=== PATIENT | male | born 1955 | race Caucasian/White ===

== ENCOUNTER 2017-01-06 18:15 | Inpatient (IN) | payer OTHER ==
[~2017-01-06] VITALS: Ht 172.7 cm; Wt 54.0 kg
[~2017-01-06 18:15] MED LIST: COREG3.125 MG PO
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
[2017-01-06 20:00] VITALS: BP 161/80
[2017-01-06] MEDS ORDERED: oxyCODONE/APAP 5/325 MG 1 TAB TAB ONE (21:41)
--- NOTE | 2017-01-06 21:48 | NUR ---
PT C/O LEG PAIN, SPOKE WITH DR. LINK REGARDING PAIN MEDICATION, MEDICATED PER MD ORDER.
[2017-01-06] MEDS ORDERED: LASIX20 MG PO (22:22)
[2017-01-06] MEDS ORDERED: SPIRONOLACTONE25 M1 PO (22:25)
[2017-01-06] MEDS ORDERED: LOPRESSOR25 MG PO (22:28)
[2017-01-06] MEDS ORDERED: LORazepam 2 MG/ML VIAL IVP PRN (22:45)
[2017-01-06] MEDS ORDERED: VANCOMYCIN PER PHARMACY MC PRN (22:45)
[2017-01-06] MEDS ORDERED: METOPROLOL 25 MG TAB PO PRN (22:45)
[2017-01-06] MEDS ORDERED: ONDANSETRON 4 MG/2 ML VIAL IVP PRN (22:45)
[2017-01-06] MEDS ORDERED: DEXTROSE 50% 50 ML SYR IVP PRN (22:45)
[2017-01-07] VITALS: BP 144/67
--- NOTE | 2017-01-07 00:04 | NUR ---
VS TAKEN, STABLE. PLACED BEDSIDE COMMODE IN ROOM. CALL LIGHT WITHIN REACH.
[2017-01-07] MEDS ORDERED: VANCOMYCIN 1GM/DEXT 5% PREMIX 200 ML IV SCH (01:00)
[2017-01-07] MEDS ORDERED: cefTRIAXone 1,000 MG VIAL ONE (01:04)
--- NOTE | 2017-01-07 01:19 | NUR ---
DUE ANTIBIOTICS ADMINISTERED, TOLERATED WELL NO REACTION NOTED. WILL CONTINUE TO MONITOR.
[2017-01-07] MEDS: oxyCODONE/APAP 5/325 MG 1 TAB TAB PO PRN ×3 (01:58→22:21)
[2017-01-07] MEDS ORDERED: VANCOMYCIN 1,000 MG VIAL ONE (02:05)
[2017-01-07] MEDS: MORPHINE SULFATE 2 MG/ML SYR IVP PRN ×5 (02:06→23:57)
--- NOTE | 2017-01-07 02:06 | NUR ---
PT C/O 10/ LEG PAIN, MEDICATED PER MD ORDER. CALL LIGHT PLACED WITHIN REACH.
--- NOTE | 2017-01-07 04:45 | NUR ---
OBTAINED WOUND CULTURE FROM LEFT LEG CELLULITIS. PATIENT IS AWAKE WATCHING TV.
--- NOTE | 2017-01-07 05:23 | NUR ---
CLEANED WOUND WITH NORMAL SALINE AND COVERED WITH KERLIX. CALL LIGHT WITHIN REACH.
--- NOTE | 2017-01-07 06:50 | NUR ---
PT IS SITTING UP IN BED. BLOOD SUGAR TAKEN 66, PROVIDED PATIENT WITH JUICE.
[2017-01-07] MEDS: BLOOD GLUCOSE MONITORING 1 DEV DEV FS SCH ×4 (06:51→20:21)
--- NOTE | 2017-01-07 07:28 | NUR ---
ENDORSED PATIENT TO DAYSHIFT RN FOR CONTINUITY OF CARE, PATIENT IS AWAKE SITTING UP IN BED.
--- NOTE | 2017-01-07 07:29 | NUR ---
RECEIVED REPORT FROM MODESTO ALCAZAR. PT IS AAOX4. PT ON ROOM AIR WITH NO S/S OF DISTRESS NOTED. IV TO LEFT AC #20, PATENT AND INTACT. DRESSING TO LEFT LOWER LEG NOTED, RASH TO BACK, AND LEFT EYEBROW ABRASION. . NO N/V OR PAIN INDICATED. ALL SAFETY PRECAUTIONS IN PLACE, SIDE RAILSX2, BED IN LOW POSITION, AND CALL LIGHT WITHIN REACH. WILL CONTINUE TO MONITOR.
--- NOTE | 2017-01-07 07:30 | NUR ---
PATIENT HAS BEEN SCREENED AND CATEGORIZED HIGH NUTRITION RISK. PATIENT WILL BE SEEN WITHIN 1-2 DAYS OF ADMISSION. 01/07/17-01/08/17 NIKOLAI VILLAGOMEZ MS, RDN
[2017-01-07 08:00] VITALS: BP 141/67
[2017-01-07] MEDS: ASPIRIN 81 MG TAB.CHEW PO SCH (08:32)
[2017-01-07 08:46] VITALS: BP 135/64
--- NOTE | 2017-01-07 08:47 | NUR ---
ADMINISTERED MEDS ORDERED. RETOOK TEMP ORAL TEMP AT 98.4. VSS. PT C/O 10/ PAIN TO LEFT LOWER LEG. ADMINISTERED MORPHINE ORDERED. WILL CONTINUE TO MONITOR.
--- NOTE | 2017-01-07 10:22 | NUR ---
PT SLEEPING WITH NO DISTRESS NOTED, ORAL TEMP AT 98.4
--- NOTE | 2017-01-07 10:31 | NUR ---
01/03/2017 RD INITIAL ASSESSMENT COMPLETED PLEASE REFER TO NUTRITION ASSESSMENT UNDER CARE ACTIVITY FOR ESTIMATED NUTRITIONAL NEEDS. RD RECOMMENDATIONS: 1. CONTINUE ON CCHO 60 GM DIET MEDICALLY APPROPRIATE AND TOLERATED BY PT. 2. RDN WILL PROVIDED DIABETIC HEALTH SHAKE TID WITH ALL MEALS 3. RD WILL F/U 5-7 DAYS; LOW RISK. NIKOLAI VILLAGOMEZ MS, RDN
--- NOTE | 2017-01-07 11:32 | NUR ---
BLOOD GLUCOSE 90, NO COVERAGE INDICATED. BP 123/78, HR 112. ADMINISTERED PERCOCET ORDERED. PT TOLERATED WELL. WILL CONTINUE TO MONITOR.
--- NOTE | 2017-01-07 13:22 | NUR ---
TALKED TO TO MD VINNY AWARE OF PT MAGNESIUM AT 1.3, TO PLACE ORDERS.
--- NOTE | 2017-01-07 13:40 | NUR ---
DR CASILLAS IN TO SEE PT. WILL FOLLOW UP ORDERED. PROVIDED PT WITH WOUND CARE.
[2017-01-07] MEDS ORDERED: METOLAZONE 5 MG TAB PO SCH (14:00)
--- NOTE | 2017-01-07 14:21 | NUR ---
PT TOLERATED MEDS WELL. BP 130/66, HR 103. PT C/O 9/10 PAIN TO LEFT LEG. ADMINISTERED MORPHINE ORDERED.
[2017-01-07] MEDS ORDERED: MAG SULF 2000 MG/WATER PREMIX 50 ML IV SCH (15:00)
--- NOTE | 2017-01-07 15:28 | NUR ---
PT TOLERATED MEDS WELL. WILL CONTINUE TO MONITOR.
--- NOTE | 2017-01-07 15:34 | NUR ---
BLOOD GLUCOSE 102, NO COVERAGE INDICATED. WILL CONTINUE TO MONITOR.
[2017-01-07 16:00] VITALS: BP 134/62
[2017-01-07] MEDS: FUROSEMIDE 40 MG/4 ML VIAL IVP SCH (16:19)
--- NOTE | 2017-01-07 16:24 | NUR ---
VSS. PT TOLERATED MEDS WELL. WILL CONTINUE TO MONITOR.
--- NOTE | 2017-01-07 18:06 | NUR ---
PT EATING DINNER, NO DISTRESS NOTED AT THIS TIME. ALL NEEDS MET. WILL CONTINUE TO MONITOR.
--- NOTE | 2017-01-07 19:23 | NUR ---
ENDORSED CARE TO MODESTO FERRARA. PT IN STABLE CONDITION.
--- NOTE | 2017-01-07 19:30 | NUR ---
RECEIVED REPORT FROM MELLISSA Barriga RN, AT BEDSIDE. INITIAL ASSESSMENT AND BODY CHECK DONE. PATIENT AAO X 4, ABLE TO FOLLOW COMMAND AND MAKE NEEDS KNOWN AND AMBULATORY WITH FLUID PUMP OPERATOR. PATIENT CURRENTLY SITING UP ON THE CHAIR. NO S/S OF DISTRESS OR SOB NOTED. SKIN NOTED: LEFT LOWER EXTREMITY CELLULITIS WITH INTACT/DRY DRESSING, RASH ON THE BACK AND LT EYE BROW ABRASION (ABBY). DISCUSSED PLAN OF CARE, PAIN MANAGEMENT AND MEDICATION REGIMEN WITH PATIENT AND PATIENT VERBALIZED UNDERSTANDING. PLACED PATIENT ON SAFETY/FALL PRECAUTIONS AND WILL CONTINUE TO MONITOR. CALL LIGHT LEFT WITHIN REACH.
[2017-01-07 19:42] VITALS: BP 147/68
[2017-01-07] MEDS: METOPROLOL 25 MG TAB PO SCH (20:22)
[2017-01-07] MEDS ORDERED: MAG SULF 2000 MG/WATER PREMIX 50 ML IV ONE (20:25)
--- NOTE | 2017-01-07 20:30 | NUR ---
ADMINISTERED DUE AND PAIN MEDICATIONS MD'S ORDERED WITH EDUCATION GIVEN. PATIENT COMPLYING WITH MEDICATIONS AND TOLERATED WELL. GIVE HS SNACKS AND ONE BOX OF ORANGE JUICE. KEPT PATIENT IN COMFORTABLE POSITION/WARM AND ELEVATED LEFT LEG ON THE PILLOW. WILL CONTINUE TO MONITOR.
--- NOTE | 2017-01-07 21:00 | NUR ---
SPOKE TO DR. MILTON OVER THE PHONE TO CLARIFY THE ORDERS: THE CORRECT ORDERS: 1) NOT GIVE MG-RIDER, RECHECK MG LEVEL IN AM, AND ALBUMIN IVPB Q 6 HR FOR 48 HOURS/ TOTAL 8 DOSES. ,NOTED AND CARRIED-OUT.
--- NOTE | 2017-01-07 21:57 | NUR ---
ROUNDS MADE, SEEN PATIENT RESTED COMFORTABLY IN BED. PAIN SYMPTOM HAS BEEN STABILIZED AND UNDER CONTROL AFTER POST-MEDICATION. WILL CONTINUE TO MONITOR.
[2017-01-07] MEDS: ALBUMIN HUMAN 25% 50 ML IV SCH (23:23)
[2017-01-08] VITALS: BP 137/69
--- NOTE | 2017-01-08 00:23 | NUR ---
ADMINISTERED PRN MEDICATION FOR PAIN AND GAVE ONE PAIR OF TUNA SANDWICH PER REQUESTED. PATIENT REMAINED IN STABLE CONDITION AND NO S/S OF DISTRESS NOTED. REINFORCED LT LEG DRESSING AND ELEVATED ON PILLOW. PATIENT TOLERATED WELL. WILL CONTINUE TO MONITOR.
[2017-01-08] MEDS: VANCOMYCIN 750 MG in NACL 0.9% 250 ML IV SCH (03:01)
[2017-01-08] MEDS: MORPHINE SULFATE 2 MG/ML SYR IVP PRN ×3 (04:46→20:16)
--- NOTE | 2017-01-08 04:50 | NUR ---
AFTER AM CARE WAS GIVEN, PATIENT C/O MODERATE LEFT LEG PAIN, 6/10. ADMINISTERED PRN MORPHINE AND ELEVATED LT LEG ON THE PILLOW. PATIENT TOLERATED WELL AND WILL CONTINUE TO MONITOR FOR EFFECTIVENESS.
[2017-01-08] MEDS: ALBUMIN HUMAN 25% 50 ML IV SCH ×4 (05:13→23:16)
[2017-01-08] MEDS: BLOOD GLUCOSE MONITORING 1 DEV DEV FS SCH ×4 (05:39→20:14)
--- NOTE | 2017-01-08 07:20 | NUR ---
ENDORSED PLAN OF CARE TO MODESTO MALLOY, AT BEDSIDE. PATIENT RESTED WELL THROUGHOUT THE SHIFT AND REMAINED IN STABLE CONDITION WITHOUT DISTRESS NOTED.
--- NOTE | 2017-01-08 07:21 | NUR ---
RECEIVED REPORT FROM MODESTO FERRARA. PT IS AAOX4, PT ON ROOM AIR WITH NO S/S OF DISTRESS NOTED. IV TO LEFT AC #20, PATENT AND INTACT. LEFT LEG CELLULITIS WITH DRESSING NOTED, SCAB TO LEFT EYEBROW. NO N/V. ALL SAFETY PRECAUTIONS IN PLACE, SIDE RAILSX2, AND BED IN LOW POSITION, AND CALL LIGHT WITHIN REACH.
[2017-01-08 08:00] VITALS: BP 149/70
[2017-01-08] MEDS: oxyCODONE/APAP 5/325 MG 1 TAB TAB PO PRN ×2 (08:26→16:07)
[2017-01-08] MEDS: FUROSEMIDE 40 MG/4 ML VIAL IVP SCH ×2 (08:27→16:07)
[2017-01-08] MEDS: METOPROLOL 25 MG TAB PO SCH ×2 (08:27→20:17)
[2017-01-08] MEDS: ASPIRIN 81 MG TAB.CHEW PO SCH (08:27)
--- NOTE | 2017-01-08 08:49 | NUR ---
VSS. PT TOLERATED MEDS WELL. PT C/O 9/10 PAIN TO LEFT LEG. ADMINISTERED PERCOCET ORDERED. WILL CONTINUE TO MONITOR.
[2017-01-08] MEDS ORDERED: MAG SULF 2000 MG/WATER PREMIX 50 ML IV SCH (09:00)
[2017-01-08] MEDS ORDERED: METOLAZONE 5 MG TAB PO SCH (09:00)
--- NOTE | 2017-01-08 10:37 | NUR ---
PT SLEEPING WITH NO DISTRESS NOTED.
--- NOTE | 2017-01-08 11:37 | NUR ---
PT TOLERATED MEDS WELL. PT C/O 9/10 PAIN TO LEFT LEG. ADMINISTERED MORPHINE ORDERED. BP 127/85, HR 95. WILL CONTINUE TO MONITOR.
[2017-01-08] MEDS: INSULIN ASPART SLIDING SCALE 100 UNITS/ML VIAL SUBQ PRN ×2 (12:10→20:23)
--- NOTE | 2017-01-08 12:12 | NUR ---
BLOOD GLUCOSE 152, ADMINISTERED 2 UNITS OF INSULIN ORDERED.
--- NOTE | 2017-01-08 14:34 | NUR ---
PT SLEEPING WITH NO DISTRESS NOTED AT THIS TIME.
[2017-01-08 16:00] VITALS: BP 145/71
--- NOTE | 2017-01-08 16:13 | NUR ---
BP 162/78, HR 102. ADMINISTERED LASIX ORDERED. PT C/O 07/06, TO LEFT LEG. ADMINISTERED PERCOCET ORDERED. PT TOLERATED MEDS WELL. WILL CONTINUE TO MONITOR.
--- NOTE | 2017-01-08 17:07 | NUR ---
PT TOLERATED MEDS WELL. WILL CONTINUE TO MONITOR.
--- NOTE | 2017-01-08 17:43 | NUR ---
PT EATING DINNER WITH NO DISTRESS NOTED.
--- NOTE | 2017-01-08 19:04 | NUR ---
ENDORSED CARE TO MODESTO FERRARA. PT IN STABLE CONDITION.
--- NOTE | 2017-01-08 19:18 | NUR ---
RECEIVED REPORT FROM MELLISSA Barriga RN, AT BEDSIDE. INITIAL ASSESSMENT AND BODY CHECK DONE. PATIENT AAO X 4, ABLE TO FOLLOW COMMAND AND MAKE NEEDS KNOWN AND AMBULATORY WITH APNS. PATIENT CURRENTLY LYING DOWN ON THE BED. V/S REMAINED WNL AND NO S/S OF DISTRESS OR SOB NOTED. STILL NOTED LEFT LOWER EXTREMITY CELLULITIS WITH INTACT/DRY DRESSING AND LT EYE BROW ABRASION (ABBY). DISCUSSED PLAN OF CARE, PAIN MANAGEMENT AND MEDICATION REGIMEN WITH PATIENT AND PATIENT VERBALIZED UNDERSTANDING. PLACED PATIENT ON SAFETY/FALL PRECAUTIONS AND WILL CONTINUE TO MONITOR. CALL LIGHT LEFT WITHIN REACH.
[2017-01-08 19:21] VITALS: BP 127/62
--- NOTE | 2017-01-08 21:30 | NUR ---
ADMINISTERED DUE AND PAIN MEDICATIONS MD'S ORDERED WITH EDUCATION GIVEN. PATIENT COMPLYING WITH MEDICATIONS AND CARE. KEPT PATIENT IN COMFORTABLE POSITION/WARM AND ELEVATED LEFT LEG ON THE PILLOW. WILL CONTINUE TO MONITOR.
[2017-01-09] VITALS: BP 147/76
--- NOTE | 2017-01-09 00:50 | NUR ---
PATIENT RESTED WELL ON THE BED. V/S REMAINED WNL AND NO DISTRESS NOTED. WILL CONTINUE TO MONITOR.
[2017-01-09] MEDS: VANCOMYCIN 750 MG in NACL 0.9% 250 ML IV SCH ×2 (03:11→23:32)
--- NOTE | 2017-01-09 04:15 | NUR ---
PATIENT IS CLINICALLY STABLE WITH UNCHANGED V/S. NO S/S OF DISTRESS NOR ANY POTENTIAL COMPLICATION NOTED. WILL CONTINUE TO MONITOR.
[2017-01-09] MEDS: ALBUMIN HUMAN 25% 50 ML IV SCH ×3 (05:16→17:42)
[2017-01-09] MEDS: MORPHINE SULFATE 2 MG/ML SYR IVP PRN ×5 (05:16→21:54)
[2017-01-09] MEDS: BLOOD GLUCOSE MONITORING 1 DEV DEV FS SCH ×2 (06:49→11:30)
--- NOTE | 2017-01-09 07:13 | NUR ---
ENDORSED PLAN OF CARE TO MODESTO MERCADO, AT BEDSIDE. PATIENT REMAINED IN STABLE CONDITION AND NO DISTRESS NOTED.
--- NOTE | 2017-01-09 07:17 | NUR ---
RECEIVED REPORT FROM NIGHT RN. PT SLEEPING IN BED. NO S/S OF ACUTE DISTRESS. AAOX4. IV SITE PATENT AND INTACT. DRESSING TO LEFT LOWER LEG DRY AND INTACT. LEFT LOWER LEG APPEARS RED AND WARM TO TOUCH WITH 3+ PITTING EDEMA. ABRASIONS TO LEFT EYEBROW NOTED. CALL LIGHT WITHIN REACH. SAFETY MEASURES ENSURED. WILL CONTINUE TO MONITOR.
[2017-01-09 08:00] VITALS: BP 153/78
[2017-01-09] MEDS: METOPROLOL 25 MG TAB PO SCH ×2 (09:26→21:52)
[2017-01-09] MEDS: LISINOPRIL 5 MG TAB PO SCH (09:26)
[2017-01-09] MEDS: FUROSEMIDE 40 MG/4 ML VIAL IVP SCH ×2 (09:27→17:42)
[2017-01-09] MEDS: ASPIRIN 81 MG TAB.CHEW PO SCH (09:27)
--- NOTE | 2017-01-09 09:58 | NUR ---
PT RESTING IN BED. PT STATES PAIN 10/10. MEDICATED ORDERED. NO S/S OF ACUTE DISTRESS. PT TOLERATED AM MEDS WELL. CALL LIGHT WITHIN REACH. SAFETY MEASURES ENSURED. WILL CONTINUE TO MONITOR.
--- NOTE | 2017-01-09 11:26 | NUR ---
WOUND CARE NOTES: UNABLE TO ASSESS PATIENT AT THIS TIME, PATIENT REFUSED. RISKS AND BENEFITS DISCUSSED, STILL REFUSING. PRIMARY RN AWARE.
--- NOTE | 2017-01-09 11:55 | NUR ---
PT STATES HE "IS NOT DIABETIC" AND REFUSED BLOOD GLUCOSE CHECK AT THIS TIME. PT EDUCATED ON BENEFIT OF MONITORING BLOOD SUGAR. PT VERBALIZES UNDERSTANDING BUT STILL REFUSES CHECKS.
--- NOTE | 2017-01-09 12:05 | NUR ---
PT RESTING IN BED. NO S/S OF ACUTE DISTRESS. PT DENIES PAIN. CALL LIGHT WITHIN REACH. WILL CONTINUE TO MONITOR.
--- NOTE | 2017-01-09 13:48 | NUR ---
PT RESTING IN BED. NO S/S OF ACUTE DISTRESS. PT STATES PAIN /. MEDICATED ORDERED. CALL LIGHT WITHIN REACH. WILL CONTINUE TO MONITOR.
--- NOTE | 2017-01-09 14:37 | NUR ---
CM NOTE INITIAL REVIEW FAXED TO [facility] / FAX# [phone], ATTN: APRIL #[phone]
[2017-01-09] MEDS ORDERED: LORazepam 2 MG/ML VIAL IVP PRN (15:15)
--- NOTE | 2017-01-09 15:30 | NUR ---
DR. CASILLAS IN TO SEE PT. PER OKAY TO GIVE MORPHINE 4MG NOW.
--- NOTE | 2017-01-09 15:56 | NUR ---
PT RESTING IN BED. NO S/S OF ACUTE DISTRESS. PT GIVEN MORPHINE 4MG FOR PAIN. CALL LIGHT WITHIN REACH. WILL CONTINUE TO MONITOR.
[2017-01-09 16:00] VITALS: BP 150/74
[2017-01-09] MEDS: NYSTATIN 500 MU/5 ML UDC PO SCH ×2 (17:42→21:52)
--- NOTE | 2017-01-09 19:25 | NUR ---
ENDORSED PLAN OF CARE TO NIGHT RN. PT REMAINS IN STABLE CONDITION.
--- NOTE | 2017-01-09 19:26 | NUR ---
RECD. RESTING IN BED, AWAKE, A/OX4. RESPIRATION EVEN AND UNLABORED. WATCHING TV. IV ALBUMIN INFUSING, LEFT AC G18. REDNESS AND SWELLING NOTED ON BILATERAL LOWER EXTREMITIES. PLAN OF CARE FOR THE SHIFT DISCUSSED. VERBALIZED UNDERSTANDING. DENIES PAIN 0/10.
[2017-01-09 20:00] VITALS: BP 154/85
--- NOTE | 2017-01-09 20:00 | NUR ---
Patient's Plan of Care was discussed and reviewed with ACTIVITIES VOLUNTEER: MARIN FARRIS
--- NOTE | 2017-01-10 01:47 | NUR ---
WITH ANXIETY, MEDICATED WITH ATIVAN 1 MG. IVP BY MODESTO MARTIN.
--- NOTE | 2017-01-10 02:17 | NUR ---
NO ANXIETY NOTED, SLEEPING COMFORTABLY IN BED.
--- NOTE | 2017-01-10 05:45 | NUR ---
TRAIN EXAMINER REPORTED, PATIENT WENT OUT OF BED. FIND PATIENT SITTING ON CHAIR, CLAIMED HE HAD BM IN THE BR. IV PULLED OUT AND DISCONNECTED FROM IV PUMP BY PATIENT. ASSISTED TO CHANGED GOWN AND BEDDINGS CHANGED WITH HELP OF PARTS COUNTERMAN.NOTED OOZING FLUID FROM CELLULITIS OF LEFT LEG, PATIENT REFUSED TO PUT DRESSING ON IT. ASSISTED BACK TO BED, SAFETY MAINTAINED. ELEVATED BOTH LEGS ON PILLOWS.
--- NOTE | 2017-01-10 07:18 | NUR ---
INSTRUCTED PATIENT NOT TO GET OUT OF BED WITHOUT NURSE FOR SAFETY. CONDITION REMAIN STABLE. ENDORSED TO MODESTO MERCADO FOR CONTINUITY OF CARE.
--- NOTE | 2017-01-10 07:22 | NUR ---
RECEIVED REPORT FROM NIGHT RN. PT SITTING IN CHAIR AT BEDSIDE. AAOX4. NO S/S OF ACUTE DISTRESS. PT DENIES PAIN. CALL LIGHT WITHIN REACH. SAFETY MEASURES ENSURED. WILL CONTINUE TO MONITOR.
[2017-01-10 08:00] VITALS: BP 158/79
[2017-01-10] MEDS: LISINOPRIL 5 MG TAB PO SCH (08:15)
[2017-01-10] MEDS: METOPROLOL 25 MG TAB PO SCH (08:15)
[2017-01-10] MEDS: ASPIRIN 81 MG TAB.CHEW PO SCH (08:15)
[2017-01-10] MEDS: FUROSEMIDE 40 MG/4 ML VIAL IVP SCH (08:16)
[2017-01-10] MEDS: NYSTATIN 500 MU/5 ML UDC PO SCH ×2 (08:16→13:27)
[2017-01-10] MEDS: MORPHINE SULFATE 2 MG/ML SYR IVP PRN (08:17)
--- NOTE | 2017-01-10 10:09 | NUR ---
PT SLEEPING IN BED. NO S/S OF ACUTE DISTRESS. PT TOLERATED AM MEDS WELL. CALL LIGHT WITHIN REACH. WILL CONTINUE TO MONITOR.
--- NOTE | 2017-01-10 11:10 | NUR ---
WOUND CARE NOTES: SEEN PATIENT TODAY RE: LLE CELLULITIS. PATIENT IS NON ADHERENT TO TREATMENT, PER PRIMARY RN PATIENT TOOK OUT THE DRESSING. AND DID NOT WANT ANY DRESSING APPLIED TO OPEN AREA ON THE LLE. RISK AND BENEFITS DISCUSSED WITH PATIENT, STILL REFUSING. HELPED PATIENT LOOKED FOR HIS CELLPHONE AND NOTED A PACK OF CIGARETTE ON HIS POCKET. RISKS AND BENEFITS DISCUSSED, UNABLE TO VERBALIZE UNDERSTANDING. WILL REINFORCE TEACHING.
--- NOTE | 2017-01-10 12:05 | NUR ---
PT SLEEPING IN BED. NO S/S OF ACUTE DISTRESS. CALL LIGHT WITHIN REACH. SAFETY MEASURES ENSURED. WILL CONTINUE TO MONITOR.
[2017-01-10 13:34] VITALS: BP 158/79
[2017-01-10] MEDS ORDERED: LEVOFLOXACIN 500 MG TAB PO SCH ×2 (13:57→14:00)
[2017-01-10] MEDS ORDERED: ASPIRIN81 M1 PO (14:17)
[2017-01-10] MEDS ORDERED: LOPRESSOR25 MG PO (14:17)
[2017-01-10] MEDS ORDERED: LEVAQUIN750 MG PO (14:18)
[2017-01-10] MEDS ORDERED: AUGMENTIN 500 M1 TAB PO (14:19)
[2017-01-10] MEDS ORDERED: LASIX40 MG PO (14:20)
[2017-01-10] MEDS ORDERED: K-DUR10 MEQ PO (14:21)
[2017-01-10] MEDS ORDERED: LISINOPRIL5 MG PO (14:23)
[2017-01-10] MEDS ORDERED: CLONIDINE0.1 MG/24 PO (14:24)
[2017-01-10] MEDS ORDERED: NORCO 10-325 T1 EACH PO (14:25)
--- NOTE | 2017-01-10 14:34 | NUR ---
RECEIVED ORDER FOR BSC FOR HOME. SPOKE WITH AYDIN AT [facility] AND FAXED THE FACE SHEET AND ORDER TO HER AT [phone] PHONE [phone] FAXED CONCURRENT REVIEW TO [facility] [phone] PHONE [place] [phone]
--- NOTE | 2017-01-10 14:45 | NUR ---
PT CLEARED FOR DISCHARGE. DISCHARGE INSTRUCTIONS GIVEN. PT VERBALIZED UNDERSTANDING. IV TAKEN OUT. TIP INTACT. NO S/S OF ACUTE DISTRESS. PT REMAINS IN STABLE CONDITION. PT REFUSED TO HAVE PICTURES TAKEN STATING HE " HAD TO LEAVE NOW". PT IS UTD ON VACCINATIONS. PT TAKEN OFF UNIT. PT REMAINS IN STABLE CONDITION.
--- NOTE | 2017-01-10 15:40 | NUR ---
CALLED [facility] AND SPOKE WITH JORGE TERRAZAS. SHE SAID THEY HAVE THE ORDER, ONLY NEED THE H&P AND THEY WILL HAVE THE BSC AUTHORIZED AND DELIVERED. I FAXED THE H&P TO [facility].
[2017-01-11] MEDS ORDERED: LEVOFLOXACIN 500 MG TAB PO SCH (09:00)
== END 2017-01-10 14:45 | disposition home or self-care (01) | DRG 383 ==
LOC: MTU 18:15
PROVIDERS: ADMIT Internal Medicine Pulmonary Disease; ATTEND Internal Medicine Pulmonary Disease
DX: L03.116 Cellulitis of left lower limb (principal); I12.9 Hypertensive chronic kidney disease with stage 1 through stage 4 chronic kidney disease, or unspecified chronic kidney disease; N18.4 Chronic kidney disease, stage 4 (severe); B37.0 Candidal stomatitis; N17.9 Acute kidney failure, unspecified; E88.09 Other disorders of plasma-protein metabolism, not elsewhere classified; N04.2 Nephrotic syndrome with diffuse membranous glomerulonephritis; I87.8 Other specified disorders of veins; R80.9 Proteinuria, unspecified; E66.01 Morbid (severe) obesity due to excess calories; R60.1 Generalized edema; Z68.1 Body mass index [BMI] 19.9 or less, adult; D72.829 Elevated white blood cell count, unspecified; B96.5 Pseudomonas (aeruginosa) (mallei) (pseudomallei) as the cause of diseases classified elsewhere; B95.61 Methicillin susceptible Staphylococcus aureus infection as the cause of diseases classified elsewhere; D64.9 Anemia, unspecified; E83.42 Hypomagnesemia; E83.51 Hypocalcemia

== ENCOUNTER 2017-02-03 10:38 | Inpatient (IN) | payer OTHER ==
[~2017-02-03] VITALS: Ht 172.7 cm; Wt 114.4 kg
[~2017-02-03 10:38] MED LIST changes: +ASPIRIN81 M1 PO; +AUGMENTIN 500 M1 TAB PO; +CLONIDINE0.1 MG/24 PO; +K-DUR10 MEQ PO; +LASIX20 MG PO; +LASIX40 MG PO; +LEVAQUIN750 MG PO; +LISINOPRIL5 MG PO; +LOPRESSOR25 MG PO; +NORCO 10-325 T1 EACH PO; +SPIRONOLACTONE25 M1 PO
[2017-02-03] MEDS ORDERED: ONDANSETRON 4 MG/2 ML VIAL IVP PRN (20:40)
[2017-02-03] MEDS ORDERED: ACETAMINOPHEN 325 MG TAB PO PRN (20:40)
[2017-02-03] MEDS ORDERED: METOPROLOL 25 MG TAB PO PRN (20:45)
[2017-02-03 21:00] VITALS: BP 137/74
--- NOTE | 2017-02-03 21:00 | NUR ---
RECEIVED PT FROM MICHEL NURSE COMMERCIAL LITIGATION ATTORNEY VIA WHEELCHAIR PT IS AAOX4 AMBULATORY MORBID OBESITY, ANASARCA, DIALYSIS ACCESS ON RT UPPER CHEST CASH CATH SKIN DRY DISCOLORATION ON LEFT LOWER EXTREMITY ON TELEMETRY SR, PT IS ORIENTED TO THE FLOOR CALL LIGHT WITHIN REACH, WAITING FOR ADMITTING DOCTOR TO PUT THE ORDERS.
--- NOTE | 2017-02-03 21:00 | NUR ---
ON ADMISSION PT HAS BRUISES ON ARMS AND LEGS, SCAR O;N LEFT UPPER LEG
[2017-02-03] MEDS: AMOXIL/CLAVULANATE 875/125 MG 1 TAB PO SCH (23:28)
[2017-02-03] MEDS: FUROSEMIDE 40 MG TAB PO SCH (23:28)
[2017-02-03] MEDS: METOPROLOL 25 MG TAB PO SCH (23:29)
[2017-02-03] MEDS: MORPHINE SULFATE 2 MG/ML SYR IVP PRN (23:30)
[2017-02-04] VITALS: BP 160/79
[2017-02-04] MEDS: MORPHINE SULFATE 2 MG/ML SYR IVP PRN ×2 (00:29→20:22)
--- NOTE | 2017-02-04 01:11 | NUR ---
ER NURSE CAME TO INSERTE IV ON LEFT UPPER ARM GAUGE #22
[2017-02-04] MEDS ORDERED: PROTONIX40 MG PO (02:31)
[2017-02-04] MEDS ORDERED: LASIX40 MG PO (02:31)
[2017-02-04] MEDS ORDERED: LIPITOR20 MG PO (02:31)
[2017-02-04] MEDS ORDERED: LOPRESSOR25 MG PO (02:31)
[2017-02-04] MEDS ORDERED: ADALAT PO (02:31)
[2017-02-04] MEDS ORDERED: ONDANSETRON8 M1 PO (02:31)
[2017-02-04] MEDS ORDERED: CARVEDILOL3.125 MG PO (02:31)
[2017-02-04] MEDS ORDERED: K-DUR10 MEQ PO (02:31)
[2017-02-04] MEDS ORDERED: CATAPRES0.1 MG PO (02:31)
[2017-02-04] MEDS ORDERED: ASPIRIN ADULT L81 M2 PO (02:31)
[2017-02-04] MEDS ORDERED: LISINOPRIL10 M1 PO (02:31)
[2017-02-04 04:00] VITALS: BP 150/84
--- NOTE | 2017-02-04 04:00 | NUR ---
PT AMBULATES TO; THE RESTROOM VOIDING WELL SPONGE BATH GIVEN , LINEN CHANGED NOT SOB NOTED ON TELE SR
--- NOTE | 2017-02-04 05:54 | NUR ---
SLEEPING WELL ON TELE SR NOT DISTRESS NOTED
--- NOTE | 2017-02-04 06:53 | NUR ---
PT RESTING ON BED ON TELEMETRY SR WILL BE ENDORSED TO DAY SHIFT NURSE JOSE SALVADOR
--- NOTE | 2017-02-04 07:00 | NUR ---
RECEIVED PT SITTING IN BED, ALERT ORIENTED X4, BREATHING EVENLY UNLABORED, NO SIGNS OF ACUTE DISTRESS, SKIN WARM AND DRY, NOTED LEFT LOWER EXT REDNESS, GENERALIZE EDEMA NOTED ON BOTH UPPER AND LOWER EXT, KEPT BOTH LEGS ELEVATED ON PILLOWS, NO SIGNS OF GI DISCOMFORT, NOTED RIGHT UPPER CHEST DIALYSIS CATHETER, WITH HX OF RENAL FAILURE, PT AMBULATES WITHOUT ASSISTANCE. DENIES ANY PAIN OR DISCOMFORT AT THIS TIME, SAFETY PRECAUTION MAINTAINED, CALL LIGHT WITHIN REACH.
--- NOTE | 2017-02-04 07:35 | NUR ---
RECEIVED ORDER FROM DR. NAQVI, ARLETTE TODAY. NOTED AND CARRIED OUT.
--- NOTE | 2017-02-04 07:45 | NUR ---
CONSENT OBTAINED FOR HD FROM PT. AWARE OF RISKS AND BENEFITS, CONTINUE TO MONITOR.
--- NOTE | 2017-02-04 07:51 | NUR ---
CALLED [facility] AND NOTIFIED FOR SCHEDULED HD TODAY ORDERED.
[2017-02-04 08:00] VITALS: BP 156/93
[2017-02-04] MEDS ORDERED: cloNIDine-TTS1 0.1 MG/24 HR 1 EA PATCH TD SCH ×2 (08:40→09:00)
--- NOTE | 2017-02-04 08:45 | NUR ---
PATIENT HAS BEEN SCREENED AND CATEGORIZED HIGH NUTRITION RISK. PATIENT WILL BE SEEN WITHIN 1-2 DAYS OF ADMISSION. 02/04/17-02/05/[address]
[2017-02-04] MEDS: LISINOPRIL 5 MG TAB PO SCH (09:00)
[2017-02-04] MEDS: METOPROLOL 25 MG TAB PO SCH ×2 (09:00→20:21)
[2017-02-04] MEDS: AMOXIL/CLAVULANATE 875/125 MG 1 TAB PO SCH ×2 (09:19→20:21)
[2017-02-04] MEDS: ASPIRIN 81 MG TAB.CHEW PO SCH (09:19)
[2017-02-04] MEDS: FUROSEMIDE 40 MG TAB PO SCH ×2 (09:19→20:21)
[2017-02-04 12:00] VITALS: BP 165/85
--- NOTE | 2017-02-04 14:04 | NUR ---
WAS SEEN BY DR. MALAGON, NEW LAB ORDERS RECEIVED. NOTED AND CARRIED OUT.
--- NOTE | 2017-02-04 14:43 | NUR ---
WAS SEEN BY HD NURSE YESICA SALVADOR, REPORT GIVEN. TO START HD TODAY. CONTINUE TO MONITOR.
--- NOTE | 2017-02-04 15:10 | NUR ---
PT STARTED ON HD BY [facility]ICA HD NURSE. TOLERATING WELL. CONTINUE TO MONITOR.
--- NOTE | 2017-02-04 15:27 | NUR ---
02/04/17 RD INITIAL ASSESSMENT COMPLETED PLEASE REFER TO NUTRITION ASSESSMENT UNDER CARE ACTIVITY FOR ESTIMATED NUTRITIONAL NEEDS. RD RECOMMENDATIONS: 1. RECOMMEND CHANGING PT DIET TO RENAL DIET D/T PT WITH RENAL FAILURE AND ON HD. --RD SPOKE WITH RN ABOUT DIET RECOMMENDATION, RN ACKNOWLEDGED. 2. RD PROVIDED PT WITH RENAL DIET EDUCATION HANDOUT. 3. RD WILL F/U 3-5 DAYS; MODERATE RISK. EMERSON COON RD
[2017-02-04 16:00] VITALS: BP 159/82
--- NOTE | 2017-02-04 18:15 | NUR ---
PT FINISHED HEMODIALYSIS, OUTPUT 2.5L REPORTED BY HD NURSE SALIMA. PROCEDURE TOLERATED BY PT WELL. ALERT AWAKE, NO SIGNS OF ACUTE DISTRESS.
--- NOTE | 2017-02-04 18:53 | NUR ---
PT AWAKE RESPONSIVE, NO SIGNS OF ACUTE DISTRESS, TO ENDORSE TO ONCOMING COMMUNITY COORDINATOR NURSE, FOR CONTINUITY OF CARE.
--- NOTE | 2017-02-04 19:15 | NUR ---
RECEIVED PT IN STABLE CONDITION FROM MODESTO GIL. NO SOB, NO SIGNS OF DISTRESS. PT AOX4, AMBULATES WITH ASSIST AND USES WHEELCHAIR. VS STABLE ON ROOM AIR. PT C/O PAIN IN GROIN AREA, SEVERE SWELLING NOTED TO SCROTUM. WILL MEDICATE PER MD ORDER. PT WITH LT LEG CELLULITIS, MOTHER TESTER. SWELLING NOTED TO ALL EXTREMITIES, 3+ PITTING EDEMA. PT HAS A RIGHT UPPER CHEST GENOVEVA CATH FOR HD, ASYMPTOMATIC, INTACT, DRESSING DRY AND INTACT. PT WITH LT UPPER ARM IV 22G ASYMPTOMATIC, INTACT, PATENT, SALINE LOCKED. PLAN OF CARE DISCUSSED WITH PT. SAFETY MEASURES IN PLACE. CALL LIGHT WITHIN REACH. WILL CONTINUE TO MONITOR.
--- NOTE | 2017-02-04 19:47 | NUR ---
FOUND PT ATTEMPTING TO GO OUTSIDE IN HIS WHEELCHAIR, PT STATED HE WAS GOING OUTSIDE TO SMOKE. EDUCATED PT THAT PATIENTS ARE NOT ALLOWED TO LEAVE THE HOSPITAL UNIT TO SMOKE PER HOSPITAL POLICY. PT BECAME UPSET AND AGITATED. REQUESTED PT TO GO BACK TO HIS ROOM. PT STAYED IN HALLWAY NEAR EXIT. WILL PAGE SECURITY TO COME AND TALK TO PT.
[2017-02-04 20:00] VITALS: BP 145/75
--- NOTE | 2017-02-04 20:04 | NUR ---
PT LEFT UNIT TO SMOKE, SECURITY AT NURSES STATION STATED THAT THEY ARE NOT ALLOWED TO ESCORT PT OUTSIDE TO SMOKE. WENT OUTSIDE WITH PT, SPOKE WITH PT, OFFERED PT NICOTINE PATCH, PT ACCEPTED AND STATED HE WILL NOT GO OUTSIDE AGAIN TONIGHT. ESCORTED PT BACK INSIDE TO ROOM.
--- NOTE | 2017-02-04 20:15 | NUR ---
UNABLE TO FIND NICOTINE PATCH IN MED SURG OR TELE PYXIS, SPOKE WITH IT NETWORK ENGINEER CHELSI. CHELSI STATED HE WILL LOOK FOR NICOTINE PATCH WELL.
--- NOTE | 2017-02-04 20:21 | NUR ---
PT TOLERATED DUE MEDS WELL. UNABLE TO ADMINISTER MORPHINE DUE TP PTS IV LEAKING. DISCONTINUED IV, ATTEMPTED TO START A NEW IV WITH NO SUCCESS. BOILER ASSISTANT OPERATOR BRANT TO ATTEMPT IV INSERTION. NO SOB, NO SIGNS OF DISTRESS. PLAN OF CARE DISCUSSED WITH PT. SAFETY MEASURES IN PLACE. CALL LIGHT WITHIN REACH. WILL CONTINUE TO MONITOR.
--- NOTE | 2017-02-04 21:30 | NUR ---
SALESPERSON AUTOMOBILES MARIN UNABLE TO GAIN IV ACCESS. PT STATED DA FROM ER WAS ABLE TO FIND ACCESS LAST NIGHT. SPOKE WITH PLASTERER STUCCO IN ER TO REQUEST DA TO COME AND TRY TO GAIN IV ACCESS ON PT. WILL FOLLOW UP.
--- NOTE | 2017-02-04 21:49 | NUR ---
MD NAQVI EVALUATING PT AT BEDSIDE
--- NOTE | 2017-02-04 21:58 | NUR ---
SPOKE WITH PIERO GAGNON, NO NICOTINE PATCH AVAILABLE AT THIS TIME. WILL ENDORSE TO AM SHIFT TO F/U WITH PHARMACY TOMORROW. PT IS ASLEEP, WILL MAKE PT AWARE WHEN HE IS AWAKE.
--- NOTE | 2017-02-04 22:44 | NUR ---
PT ASLEEP IN BED. NO SOB, NO SIGNS OF DISTRESS. SAFETY MEASURES IN PLACE. CALL LIGHT WITHIN REACH. WILL CONTINUE TO MONITOR.
--- NOTE | 2017-02-04 23:16 | NUR ---
SPOKE WITH HD NURSE KATIA, MADE AWARE OF PT DIALYSIS ORDERED FOR 1000 TOMORROW.
[2017-02-05] VITALS: BP 139/82
--- NOTE | 2017-02-05 00:30 | NUR ---
ER FIELD INVESTIGATOR RON AT BEDSIDE UNABLE TO GAIN IV ACCESS AFTER MULTIPLE ATTEMPTS. PT STATED HE WANTS US TO STOP AND GET SOME REST. PT STATED HE IS WILLING TO RETRY AFTER DIALYSIS TOMORROW. WILL ENDORSE TO AM SHIFT TO MAKE MD AWARE. VS STABLE ON ROOM AIR. NO SOB, NO SIGNS OF DISTRESS. SAFETY MEASURES IN PLACE. CALL LIGHT WITHIN REACH. WILL CONTINUE TO MONITOR.
--- NOTE | 2017-02-05 01:48 | NUR ---
PT CRYING IN PAIN, PAGED MD GARCÍA MANAGER TECHNOLOGY FOR MD MALAGON TO GET ORDER FOR ORAL PAIN MEDS SINCE PT DOES NOT HAVE IV ACCESS. WAITING FOR CALL BACK.
--- NOTE | 2017-02-05 01:55 | NUR ---
SPOKE WITH MD GARCÍA, MADE AWARE THAT WE ARE UNABLE TO GAIN IV ACCESS AND PT C/O SEVERE PAIN. MD GAVE ORDERS FOR PO PAIN MEDICATION, WILL MEDICATE PT PER MD ORDER.
[2017-02-05] MEDS: HYDROcodone/APAP 5/325 MG 1 TAB TAB PO PRN ×4 (03:22→23:46)
--- NOTE | 2017-02-05 03:22 | NUR ---
MEDICATED PT FOR PAIN PER MD ORDER, PT TOLERATED WELL. NO SOB, NO SIGNS OF DISTRESS. SAFETY MEASURES IN PLACE. CALL LIGHT WITHIN REACH. WILL CONTINUE TO MONITOR.
[2017-02-05 04:00] VITALS: BP 153/71
--- NOTE | 2017-02-05 04:13 | NUR ---
VS STABLE ON ROOM AIR. NO SOB, NO SIGNS OF DISTRESS. SAFETY MEASURES IN PLACE. CALL LIGHT WITHIN REACH. WILL CONTINUE TO MONITOR.
--- NOTE | 2017-02-05 07:00 | NUR ---
PT IN BED, ASLEEP, AWAKEN WHEN CALLED BY NAME, ALERT ORIENTED X4. NO SOB, BREATHING EVENLY, ON ROOM AIR. VITAL SIGNS TAKEN AND RECORDED. NO ABDOMINAL DISCOMFORT NOTED, VOIDING CLEAR YELLOW URINE. NO IV ACCESS. COMPLAINT OF PAIN 9/10 SACRAL AREA. WILL MEDICATE FOR PAIN ORDERED. LEFT LOWER LEG CELLULITIS NOTED, REMINDED TO ELEVATE BOTH LEGS ON PILLOWS. BOTH LEG EDEMA +4 NOTED. PT AMBULATORY. SAFETY PRECAUTION MAINTAINED. CALL LIGHT WITHIN REACH.
--- NOTE | 2017-02-05 07:08 | NUR ---
ENDORSED PT IN STABLE CONDITION TO [facility] GIL. ALL NEEDS HAVE BEEN MET AT THIS TIME.
[2017-02-05 07:53] VITALS: BP 154/85
[2017-02-05] MEDS: AMOXIL/CLAVULANATE 875/125 MG 1 TAB PO SCH ×2 (08:29→20:52)
[2017-02-05] MEDS: ASPIRIN 81 MG TAB.CHEW PO SCH (08:29)
[2017-02-05] MEDS: FUROSEMIDE 40 MG TAB PO SCH ×2 (08:29→20:52)
[2017-02-05] MEDS: METOPROLOL 25 MG TAB PO SCH ×2 (08:31→20:53)
[2017-02-05] MEDS: NICOTINE TRANSD SYS 21 MG/24 HR PATCH TD SCH (08:31)
[2017-02-05] MEDS: LISINOPRIL 5 MG TAB PO SCH (08:33)
--- NOTE | 2017-02-05 09:20 | NUR ---
NOTED PT TRIED TO SMOKE OUTSIDE AND WITH EPISODE OF NON COMPLIANCE TO HEALTH TREATMENT. EXPLAINED RISKS AND EFFECTS OF SMOKING. PT NEEDS REINFORCEMENT. AWARE.
[2017-02-05 12:00] VITALS: BP 158/82
--- NOTE | 2017-02-05 13:00 | NUR ---
PT STARTED ON HD ORDERED BY KATIA SALVADOR FROM DIALYSIS. TOLERATING WELL CONTINUE TO MONITOR.
[2017-02-05 16:00] VITALS: BP 154/79
--- NOTE | 2017-02-05 16:15 | NUR ---
PT FINISHED DIALYSIS PER DIALYSIS NURSE WITH AN OUTPUT OF 3L. PT ALERT, AWAKE, VITAL SIGNS TAKEN AND RECORDED.
--- NOTE | 2017-02-05 19:06 | NUR ---
PT ALERT AND RESPONSIVE, NO SIGNS OF ACUTE DISTRESS. ENDORSED TO ONCOMING SMALL OFFSET PRINTER NURSE FOR CONTINUITY OF CARE.
--- NOTE | 2017-02-05 19:10 | NUR ---
RECEIVED PT IN STABLE CONDITION FROM [facility]ST[facility] GIL. NO SOB, NO SIGNS OF DISTRESS. PT AOX4, AMBULATES WITH ASSIST AND USES WHEELCHAIR. VS STABLE ON ROOM AIR. SEVERE SWELLING NOTED TO SCROTUM. PT STATES HIS PAIN IS TOLERABLE AT THIS TIME. PT WITH LT LEG CELLULITIS, ABBY. SWELLING NOTED TO ALL EXTREMITIES, 3+ PITTING EDEMA. PT HAS A RIGHT UPPER CHEST GENOVEVA CATH FOR HD, ASYMPTOMATIC, INTACT, DRESSING DRY AND INTACT. PT WITH NO IV ACCESS, UNABLE TO OBTAIN ACCESS IN PREVIOUS ATTEMPTS, WILL TRY AGAIN TONIGHT. PLAN OF CARE DISCUSSED WITH PT. SAFETY MEASURES IN PLACE. CALL LIGHT WITHIN REACH. WILL CONTINUE TO MONITOR.
[2017-02-05 20:00] VITALS: BP 148/63
--- NOTE | 2017-02-05 20:53 | NUR ---
PT TOLERATED DUE MEDS WELL. NO SOB, NO SIGNS OF DISTRESS. PT STATES HIS PAIN IS TOLERABLE AT THIS TIME. PLAN OF CARE DISCUSSED WITH PT. SAFETY MEASURES IN PLACE. CALL LIGHT WITHIN REACH. WILL CONTINUE TO MONITOR.
[2017-02-05] MEDS ORDERED: MAG SULF 2000 MG/WATER PREMIX 50 ML IV SCH (22:20)
--- NOTE | 2017-02-05 22:30 | NUR ---
MD NAQVI HERE TO SEE PT
--- NOTE | 2017-02-05 22:33 | NUR ---
MD NAQVI MADE AWARE OF PTS LOW MAGNESIUM. TO PUT IN ORDERS.
--- NOTE | 2017-02-05 22:34 | NUR ---
PT ASLEEP IN BED. NO SOB, NO SIGNS OF DISTRESS. SAFETY MEASURES IN PLACE. CALL LIGHT WITHIN REACH. WILL CONTINUE TO MONITOR.
--- NOTE | 2017-02-05 23:47 | NUR ---
VS STABLE ON ROOM AIR. NO SOB, NO SIGNS OF DISTRESS. MEDICATED PT FOR C/O PAIN PER MD ORDER. PT TOLERATED WELL. SAFETY MEASURES IN PLACE. CALL LIGHT WITHIN REACH. WILL CONTINUE TO MONITOR.
[2017-02-06] VITALS: BP 154/72
--- NOTE | 2017-02-06 02:19 | NUR ---
PT ASLEEP IN BED. NO SOB, NO SIGNS OF DISTRESS. SAFETY MEASURES IN PLACE. CALL LIGHT WITHIN REACH. WILL CONTINUE TO MONITOR.
[2017-02-06 04:00] VITALS: BP 148/73
--- NOTE | 2017-02-06 04:10 | NUR ---
VS STABLE ON ROOM AIR. NO SOB, NO SIGNS OF DISTRESS. PT DENIES PAIN AT THIS TIME. SAFETY MEASURES IN PLACE. CALL LIGHT WITHIN REACH. WILL CONTINUE TO MONITOR
--- NOTE | 2017-02-06 07:10 | NUR ---
RECEIVED PATIENT REPORT AT BEDSIDE. PATIENT AWAKE, ALERT AND ORIENTED. NO S/S OF DISTRESS NOTED. NO IV ACCESS NOTED. CASH CATH NOTED TO RIGHT UPPER CHEST. PATIENT SCHEDULED TO HAVE HEMODIALYSIS TODAY. PATIENT IS AWARE. +4 PITTING EDEMA NOTED TO BLE. CELLULITIS NOTED TO THE LEFT LOWER LEG. PATIENT ON TELE MONITORING. BED LOWERED WITH CALL LIGHT WITHIN REACH. WILL CONTINUE TO MONITOR
--- NOTE | 2017-02-06 07:29 | NUR ---
ENDORSED PT IN STABLE CONDITION TO SALLY Corral RN. ALL NEEDS HAVE BEEN MET AT THIS TIME.
[2017-02-06 08:00] VITALS: BP 156/82
[2017-02-06] MEDS: MAGNESIUM OXIDE 400 MG TAB PO SCH ×2 (08:20→20:41)
[2017-02-06] MEDS: FUROSEMIDE 40 MG TAB PO SCH ×2 (08:20→20:41)
[2017-02-06] MEDS: METOPROLOL 25 MG TAB PO SCH ×2 (08:20→20:42)
[2017-02-06] MEDS: HYDROcodone/APAP 5/325 MG 1 TAB TAB PO PRN ×2 (08:20→20:41)
[2017-02-06] MEDS: ASPIRIN 81 MG TAB.CHEW PO SCH (08:20)
[2017-02-06] MEDS: AMOXIL/CLAVULANATE 875/125 MG 1 TAB PO SCH ×2 (08:20→20:41)
[2017-02-06] MEDS: LISINOPRIL 5 MG TAB PO SCH (08:20)
[2017-02-06] MEDS: NICOTINE TRANSD SYS 21 MG/24 HR PATCH TD SCH (08:21)
--- NOTE | 2017-02-06 11:30 | NUR ---
PATIENT SEEN BY DR MALAGON. DR MALAGON AWARE OF PATIENT'S LAB RESULTS
--- NOTE | 2017-02-06 11:55 | NUR ---
CM NOTE INITIAL REVIEW SENT TO [facility] FAX# [phone] ATTN: [place] # [phone]
[2017-02-06 12:00] VITALS: BP 140/77
--- NOTE | 2017-02-06 13:00 | NUR ---
PATIENT ASLEEP. HEMODIALYSIS STILL IN PROGRESS
--- NOTE | 2017-02-06 14:30 | NUR ---
HEMODIALYSIS DONE. 4L OUT. BP 118/72 HR 107. NO S/S OF DISTRESS NOTED
--- NOTE | 2017-02-06 14:43 | NUR ---
CM ANGELIKA SPOKE WITH DR. NAQVI REGARDING ORDER OF ATTENDING PHYSICIAN FOR OUTPATIENT HD CHAIR TIME TO ASK HIM WHICH OUTPATIENT CLINIC HE PREFERS FOR THE PATIENT. PER DR. NAQVI, DIALYSIS WITH DRY ULTRAFILTRATION IS WHAT HE ORDERED TO BE DONE IN THE HOSPITAL AND HE'S NOT SURE WHAT DR. GARCÍA, WOULD WANT TO DO FOR OUTPATIENT. INFORMED CM DIR DURON REGARDING THIS AND NURSE ZAVALA TRIED TO REACH DR. GARCÍA, WAITING FOR CALL BACK.
[2017-02-06 16:00] VITALS: BP 141/114
--- NOTE | 2017-02-06 17:04 | NUR ---
LEFT KATIA KING REGARDING ORDERED HEMODIALYSIS FOR THE PATIENT TOMORROW
--- NOTE | 2017-02-06 17:07 | NUR ---
RECEIVED CONFIRMATION FROM KATIA KING
--- NOTE | 2017-02-06 19:30 | NUR ---
RECEIVED PT IN STABLE CONDITION FROM SALLY Corral RN. NO SOB, NO SIGNS OF DISTRESS. PT AOX4, AMBULATES WITH ASSIST AND USES WHEELCHAIR. VS STABLE ON ROOM AIR. SEVERE SWELLING NOTED TO SCROTUM. PT C/O PAIN, WILL MEDICATE PER MD ORDER. PT WITH LT LEG CELLULITIS, ABBY. SWELLING NOTED TO ALL EXTREMITIES, 3+ PITTING EDEMA. PT HAS A RIGHT UPPER CHEST GENOVEVA CATH FOR HD, ASYMPTOMATIC, INTACT, DRESSING DRY AND INTACT. PT WITH NO IV ACCESS, UNABLE TO OBTAIN ACCESS DUE TO EDEMA. PLAN OF CARE DISCUSSED WITH PT. SAFETY MEASURES IN PLACE. CALL LIGHT WITHIN REACH. WILL CONTINUE TO MONITOR.
[2017-02-06 20:00] VITALS: BP 137/85
--- NOTE | 2017-02-06 20:42 | NUR ---
PT TOLERATED DUE MEDS WELL. NO SOB, NO SIGNS OF DISTRESS. MEDICATED PT FOR PAIN PER MD ORDER. PLAN OF CARE DISCUSSED WITH PT. SAFETY MEASURES IN PLACE. CALL LIGHT WITHIN REACH. WILL CONTINUE TO MONITOR.
[2017-02-07] VITALS: BP 134/61
--- NOTE | 2017-02-07 00:34 | NUR ---
VS STABLE ON ROOM AIR. NO SOB, NO SIGNS OF DISTRESS. SAFETY MEASURES IN PLACE. CALL LIGHT WITHIN REACH. WILL CONTINUE TO MONITOR.
--- NOTE | 2017-02-07 02:34 | NUR ---
PT ASLEEP IN BED. NO SOB, NO SIGNS OF DISTRESS. SAFETY MEASURES IN PLACE. CALL LIGHT WITHIN REACH. WILL CONTINUE TO MONITOR.
--- NOTE | 2017-02-07 03:50 | NUR ---
VS STABLE ON ROOM AIR. PT REFUSED HEPARIN, STATED HE ALREADY GOT IT TWICE YESTERDAY AND IT HURTS. EDUCATED PT ON WHY HE NEEDS THE BLOOD THINNER, PT STILL DECLINED. NO SOB, NO SIGNS OF DISTRESS. SAFETY MEASURES IN PLACE. CALL LIGHT WITHIN REACH. WILL CONTINUE TO MONITOR.
[2017-02-07 04:00] VITALS: BP 143/56
--- NOTE | 2017-02-07 07:32 | NUR ---
ENDORSED PT IN STABLE CONDITION TO MODESTO MACK. ALL NEEDS HAVE BEEN MET AT THIS TIME.
--- NOTE | 2017-02-07 07:40 | NUR ---
RECEIVED PATIENT REPORT AT BEDSIDE FROM NIGHT NURSE. PATIENT IS AWAKE, ALERT AND ORIENTED. NO S/S OF DISTRESS NOTED. NO IV ACCESS . CASH CATH NOTED TO RIGHT UPPER CHEST. PATIENT SCHEDULED TO HAVE HEMODIALYSIS TODAY. PITTING EDEMA NOTED TO BLE. PT HAS CELLULITIS NOTED TO THE LEFT LOWER LEG. HOB ELEVATED WITH LOW BED POSITION. CALL LIGHT WITHIN REACH. WILL CONTINUE TO MONITOR
[2017-02-07 08:00] VITALS: BP 150/75
[2017-02-07] MEDS: AMOXIL/CLAVULANATE 875/125 MG 1 TAB PO SCH ×2 (08:30→21:43)
[2017-02-07] MEDS: METOPROLOL 25 MG TAB PO SCH ×2 (08:32→21:45)
[2017-02-07] MEDS: MAGNESIUM OXIDE 400 MG TAB PO SCH ×2 (08:32→21:43)
[2017-02-07] MEDS: LISINOPRIL 5 MG TAB PO SCH (08:32)
[2017-02-07] MEDS: FUROSEMIDE 40 MG TAB PO SCH ×2 (08:32→21:43)
[2017-02-07] MEDS: ASPIRIN 81 MG TAB.CHEW PO SCH (08:33)
[2017-02-07] MEDS: NICOTINE TRANSD SYS 21 MG/24 HR PATCH TD SCH (08:33)
[2017-02-07] MEDS: HYDROcodone/APAP 5/325 MG 1 TAB TAB PO PRN ×2 (09:15→17:22)
--- NOTE | 2017-02-07 11:30 | NUR ---
PT AWAKE, ALERT AND ORIENTED. NO S/S OF RESPIRATORY DISTRESS NOTED.
--- NOTE | 2017-02-07 11:45 | NUR ---
CM NOTE CONCURRENT REVIEW SENT TO [facility] FAX# [phone] PH# [place] [phone]
[2017-02-07 12:00] VITALS: BP 145/68
--- NOTE | 2017-02-07 12:29 | NUR ---
RECEIVED CALL FROM DR. ROD GARCÍA # [phone] AND HE SAID THAT HE SPOKE WITH DR. HARISH ZHANG. PER RETURNS CLERK DR. Jim GARCÍA, PATIENT DOES NOT NEED OUTPATIENT DIALYSIS SO NO NEED TO ARRANGE FOR OUTPATIENT HD CHAIR TIME AND HE WILL SPEAK WITH THE PATIENT'S ATTENDING DR. MAYBERRY TO INFORM HIM. PER SR. Jim GARCÍA, THE PLAN IS FOR PATIENT TO POSSIBLY HAVE ANOTHER DIALYSIS AT THE HOSPITAL (DIALYSIS WITH DRY ULTRAFILTRATION) AND POSSIBLE DC AFTER IF STABLE.
--- NOTE | 2017-02-07 14:49 | NUR ---
CM NOTE RECEIVED ANOTHER CALL FROM DR. ROD GARCÍA AND HE SAID THAT THE PATIENT DOES NEED OUTPATIENT HD CHAIR TIME. INFORMED HIM THAT THERE IS NO HEPATITIS PANEL RESULT YET. SPOKE WITH MARTHA REID OF [facility]# [phone] AND FAXED HER THE H&P, CONSULTATION REPORT, CHEST X-RAY, LABORATORY RESULTS, CURRENT MEDICATION LIST AND DIALYSIS FLOWSHEET FAX# [phone].
[2017-02-07 16:00] VITALS: BP 137/68
--- NOTE | 2017-02-07 17:52 | NUR ---
DINNER TRAY SERVED TO PT.
--- NOTE | 2017-02-07 18:30 | NUR ---
DIALYSIS IN PROGRESS.
--- NOTE | 2017-02-07 19:30 | NUR ---
RECEIVED PT IN STABLE CONDITION FROM AM NURSE FOR CONTINUITY OF CARE. AWAKE,ALERT AND ORIENTED X4. MED SURG PT. ON HD ONGOING AT THIS TIME. ACCESS ON THE RT UPPER CHEST HERSON SPLIT CATH. NO IV ACCESS, AWARE, PER AM NURSE. PLAN OF CARE DISCUSSED AND VERBALIZED UNDERSTANDING. CALL LIGHT PLACED WITHIN EASY REACH. WILL CONTINUE TO MONITOR.
--- NOTE | 2017-02-07 21:00 | NUR ---
HD DONE WITH 4LITERS OUTPUT.
--- NOTE | 2017-02-07 21:05 | NUR ---
PT INSISTED ON GOING TO BATHROOM POST HD. PT HAS WEAKNESS . AND FELT DIZZY . SKIN MOIST. ASSISTED BACK TO BED WITH 3 PERSON ASSISTANCE. VITAL SIGNS TAKEN BP -119/48-R 18, P-77, O2 SAT 96% RA,T-97.6 INSTRUCTED PT TO STAY IN BED .HE SAID HE FEEL BETTER. CALL LIGHT PLAXCED WITHIN EASY REACH, BED ALARM ON. WILL CONTINUE TO MONITOR.
--- NOTE | 2017-02-07 21:30 | NUR ---
PT C/O ITCHING MOSTLY ON BACK. PAGED DR. MALAGON, DR. CHEN ARMORED TRUCK DRIVER . CALLED BACK WITH ORDER.
--- NOTE | 2017-02-07 23:00 | NUR ---
SLEEPING AT THIS TIME. NO S/S OF ANY DISTRESS NOTED. WILL CONTINUE TO MONITOR.
[2017-02-08 00:15] VITALS: BP 138/65
[2017-02-08] MEDS: HYDROcodone/APAP 5/325 MG 1 TAB TAB PO PRN ×2 (00:19→12:08)
--- NOTE | 2017-02-08 01:30 | NUR ---
ASLEEP. NO S/ S OF ANY DISCOMFORT NOR PAIN NOTED.
--- NOTE | 2017-02-08 05:00 | NUR ---
REFUSED BLOOD DRAWN THIS AM. WILL TRY LATER.
--- NOTE | 2017-02-08 05:30 | NUR ---
PT IS AWAKE, INSISTED ON GOING TO THE BATHROOM. THIS TIME, PT ABLE TO AMBULATE TO BATHROOM WELL WITH NO DISCOMFORT AND DIZZINESS NOTED.
--- NOTE | 2017-02-08 07:20 | NUR ---
ENDORSED PT IN STABLE CONDITION TO AM NURSE.
--- NOTE | 2017-02-08 07:20 | NUR ---
RECEIVED REPORT FROM NIGHT NURSE. PT IS AAOX4, ON ROOM AIR. NO IV ACCESS. RIGHT UPPER CHEST GENOVEVA CATH . LEFT LOWER LEG CELLULITIS AND EDEMA.SWOLLEN SCROTUM. INITIAL ASSESSMENT COMPLETED. REVIEWED PLAN OF CARE WITH PT, PT VERBALIZED UNDERSTANDING, ALL SAFETY/FALL PRECAUTIONS MET. ALL NEEDS MET. CALL LIGHT WITHIN REACH WILL CONTINUE TO MONITOR.
[2017-02-08 08:00] VITALS: BP 154/90
--- NOTE | 2017-02-08 08:03 | NUR ---
CM NOTE SPOKE WITH MARTHA FRANKLIN OF [facility] PH# [phone] AND SHE SAID THAT THE PATIENT'S SCHEDULE FOR OUTPATIENT DIALYSIS ARE TUESDAYS, THURSDAYS AND SATURDAYS, 4:15 PM AT [facility] [id number] [facility] PH# [phone]. PATIENT HAS TO BE AT [facility] AT 3:30 PM ON FIRST DAY OF OUTPATIENT DIALYSIS ON THURSDAY FEBRUARY 09, 2017 AND BRING INSURANCE CARD, SOCIAL SECURITY CARD, [place] ID, CURRENT MEDICATION LIST. SPOKE WITH PATIENT BEDSIDE AND HE SAID THAT HIS FRIEND JOSE A RAMIREZ CAN BRING HIM TO HIS DIALYSIS. CHARGE NURSE SOLOMON EXT 301 AWARE. Addendum: 02/08/17 at 0839 by Stephanie Ge CM NURSE AMADOR BENEDICT 3018 AWARE
[2017-02-08] MEDS: AMOXIL/CLAVULANATE 875/125 MG 1 TAB PO SCH (08:55)
[2017-02-08] MEDS: ASPIRIN 81 MG TAB.CHEW PO SCH (08:55)
[2017-02-08] MEDS: NICOTINE TRANSD SYS 21 MG/24 HR PATCH TD SCH (08:56)
[2017-02-08] MEDS: MAGNESIUM OXIDE 400 MG TAB PO SCH (08:56)
--- NOTE | 2017-02-08 08:59 | NUR ---
DUE MEDICATION GIVEN. BP MEDIATION NO GIVEN DUE TO SCHEDULE HD AT 0900. OUTPATIENT HD INFORMATION GIVEN, PT VERBALIZED UNDERSTANDING. CALL LIGHT WITHIN REACH. WILL CONTINUE TO MONITOR.
[2017-02-08] MEDS: METOPROLOL 25 MG TAB PO SCH (09:00)
[2017-02-08] MEDS: FUROSEMIDE 40 MG TAB PO SCH (09:00)
[2017-02-08] MEDS: LISINOPRIL 5 MG TAB PO SCH (09:00)
--- NOTE | 2017-02-08 12:00 | NUR ---
PT C/O OF PAIN, WILL MEDICATE PER MD ORDERS. HD TAKING PLACE AT THIS TIME, CALL LIGHT WITHIN REACH. WILL CONTINUE TO MONITOR.
--- NOTE | 2017-02-08 12:48 | NUR ---
CM NOTE CONCURRENT REVIEW SENT TO [facility] FAX# [phone] PH# [place] [phone]
--- NOTE | 2017-02-08 13:30 | NUR ---
DUE MEDICATION GIVEN, PT TOLERATED WELL. REVIEWED PLAN OF CARE WITH PT. PT VERBALIZED UNDERSTANDING. CALL LIGHT WITHIN REACH. WILL CONTINUE TO MONITOR.
[2017-02-08 16:00] VITALS: BP 143/72
--- NOTE | 2017-02-08 16:10 | NUR ---
CHECKED IN ON PT, ALL NEEDS MET. CALL LIGHT WITHIN REACH. WILL CONTINUE TO MONITOR.
[2017-02-08] MEDS ORDERED: NORCO 10-325 T1 EACH PO (17:40)
--- NOTE | 2017-02-08 18:10 | NUR ---
PT SIGNED ALL DISCHARGE PAPERWORK, PRESCRIPTION AND EDUCATION GIVEN, PT VERBALIZED UNDERSTANDING. ALL MD FOLLOW UP INFORMATION GIVEN. ALL PERSONAL BELONGING WITH PT, PT STATES RIDE WILL BE HERE AT 1930.
--- NOTE | 2017-02-08 19:20 | NUR ---
PT WAS WHEELED OUT TO FRONT LOBBY IN STABLE CONDITION.
== END 2017-02-08 19:20 | disposition home or self-care (01) | DRG 460 ==
LOC: MTU 10:38 → UNDOADMIN 20:25 → MTU 20:25 → UNDOADMIN 02-07 15:50
PROVIDERS: ADMIT Internal Medicine Pulmonary Disease; ATTEND Internal Medicine Pulmonary Disease
PROC: 5A1D60Z (ICD-10-PCS; principal; 2017-02-04)
DX: I12.0 Hypertensive chronic kidney disease with stage 5 chronic kidney disease or end stage renal disease (principal); N18.6 End stage renal disease; Z68.41 Body mass index [BMI] 40.0-44.9, adult; E87.70 Fluid overload, unspecified; E88.09 Other disorders of plasma-protein metabolism, not elsewhere classified; E66.01 Morbid (severe) obesity due to excess calories; F17.210 Nicotine dependence, cigarettes, uncomplicated; D72.829 Elevated white blood cell count, unspecified; E83.42 Hypomagnesemia; D64.9 Anemia, unspecified; N50.89 Other specified disorders of the male genital organs; R60.0 Localized edema; Z87.441 Personal history of nephrotic syndrome; E83.51 Hypocalcemia; Z99.2 Dependence on renal dialysis; Z98.890 Other specified postprocedural states; Z83.3 Family history of diabetes mellitus

== ENCOUNTER 2017-03-12 09:27 | Inpatient (IN) | payer OTHER ==
[~2017-03-12] VITALS: Ht 170.2 cm; Wt 103.5 kg
[~2017-03-12 09:27] MED LIST changes: +ADALAT PO; +ASPIRIN ADULT L81 M2 PO; +CARVEDILOL3.125 MG PO; +CATAPRES0.1 MG PO; +LIPITOR20 MG PO; +LISINOPRIL10 M1 PO; +ONDANSETRON8 M1 PO; +PROTONIX40 MG PO
[2017-03-12 09:29] VITALS: BP 149/76
--- NOTE | 2017-03-12 09:30 | NUR ---
PT STATES HE TOOK 3 REGULAR ASPIRINS TODAY--DID NOT RECALL MG'S
--- NOTE | 2017-03-12 09:40 | NUR ---
EKG performed at BS by PHAN GUERRA. Physician given copy of EKG for review.
--- NOTE | 2017-03-12 09:53 | NUR ---
Patient taken from ED lobby to XRAY via wheelchair by tech.
--- NOTE | 2017-03-12 09:54 | NUR ---
PT TO X-RAY VIA WHEEL CHAIR
--- NOTE | 2017-03-12 10:01 | NUR ---
Patient transferred to bed 5 via wheelchair by [facility] for further care. RN evaluating patient at bedside.
--- NOTE | 2017-03-12 10:06 | NUR ---
Dr. Hopson evaluating patient at bedside.
--- NOTE | 2017-03-12 10:10 | NUR ---
PT CAME TO ER W/ C/O ANTERIOR CHEST WALL PAIN X 2 DAYS---PRESSURE TYPE PAIN, NON RADIATING, NON PROVOKED, SELF ALLEVIATING;HX HTN, RENAL FAILURE, HEMODIALYSIS TUES & FRI, CAD-CASH CATHETER R CHEST;PT TOOK 2 ASPIRIN THIS MORNING BUT CAN'T REMEMBER THE MG;AAOX4;DENIES SOB;UNLABORED BREATHING W/ SYMMETRICAL CHEST EXPANSION;DENIES N/V/HEADACHE;HOB ELEVATED;NEEDS ATTENDED;SAFETY MEASURES DONE;ALL MONITORS IN PLACED;MD AWARE OF PT'S CONDITION.
--- NOTE | 2017-03-12 10:45 | NUR ---
PT IS SLEEPING;NO ACUTE DISTRESS NOTED AT THIS TIME;WILL CONTIUE TO MONITOR PT.
--- NOTE | 2017-03-12 11:37 | NUR ---
PT IS RESTING ON BED;ASKED FOR HIS BAG;NO ACUTE DISTRESS NOTED AT THIS TIME;WILL CONTINU TO MONITOR PT.
--- NOTE | 2017-03-12 11:41 | NUR ---
PT VERBALIZES NO PAIN AT THIS TIME;
--- NOTE | 2017-03-12 11:46 | NUR ---
FLUSHED IV CATHETER W/.9 NS;NO RESISTANCE NOTED;
[2017-03-12] MEDS ORDERED: MORPHINE SULFATE 2 MG/ML SYR IVP PRN (11:55)
--- NOTE | 2017-03-12 12:27 | NUR ---
Patient will be admitted to care of DR MALAGON. Admited to TELE. Will go to room 110-B. Belongings list completed. Report to PAULO SALVADOR.
--- NOTE | 2017-03-12 12:39 | NUR ---
PER TRIAGE NURSE,PATIENT TAKING SAME MEDS. IN HIS PROFILE
--- NOTE | 2017-03-12 13:00 | NUR ---
RECEIVED PT FROM ER ON A GURNEY AAOX4, WITH NO S/S OF RESPIRATORY DISCOMFORT OR DISTRESS, WITH IV ACCESS ON LEFT AC PATENT AND INTACT. WITH CASH CATH ON RIGHT UPPER CHEST 2 LUMEN DIALYSIS ACCESS WITH DRY DRESSING, INSERTION SITE OBSERVED TO HAVE REDNESS, PHOTOS TAKEN AND AFFIXED IN CHART. PT ORIENTED TO HOSPITAL ENVIRONMENT, DISCUSSED PLAN OF CARE, PT VERBALIZED UNDERSTANDING. CALL LIGHT WITHIN REACH, WILL CONTINUE TO MONITOR.
--- NOTE | 2017-03-12 14:20 | NUR ---
NOTIFIED DR MALAGON RE: POTASSIUM LEVEL, STATED TO NOTIFY NEPHRO. PAGED DR. GARCÍA. WILL AWAIT FOR ORDERS
[2017-03-12] MEDS ORDERED: SODIUM POLYSTYRENE 15 GM/60 ML UDBTL PO SCH (14:30)
--- NOTE | 2017-03-12 14:30 | NUR ---
SPOKE TO DR. MARICARMEN GARCÍA RE: PT POTASSIUM LEVELS, CHARGE NURSE MD ENID IN THE SAME GROUP WITH DR. ROD GARCÍA. WILL CARRY OUT NEW ORDERS
[2017-03-12 16:00] VITALS: BP 152/71
[2017-03-12] MEDS ORDERED: ONDANSETRON 4 MG/2 ML VIAL IVP PRN (17:25)
[2017-03-12] MEDS ORDERED: HYDROcodone/APAP 10/325 MG 1 TAB TAB PO PRN (17:25)
[2017-03-12] MEDS: NITROGLYCERIN 0.4 MG TAB SL PRN ×4 (17:45→22:14)
[2017-03-12] MEDS: NICOTINE TRANSD SYS 14 MG/24 HR PATCH TD SCH (18:23)
--- NOTE | 2017-03-12 18:24 | NUR ---
PT REFUSED BLOOD DRAW. CHARGE NURSE AWARE.
--- NOTE | 2017-03-12 18:36 | NUR ---
PAGED DR. MALAGON REGARDING PT REFUSAL, SPOKE TO DR LAMB FILM LIBRARIAN FOR DR MALAGON, NO NEW ORDERS.
--- NOTE | 2017-03-12 18:39 | NUR ---
PT REFUSED SCDS
--- NOTE | 2017-03-12 19:28 | NUR ---
ENDORSED PT TO MODESTO CARRION IN STABLE CONDITION FOR CONTINUITY OF CARE
[2017-03-12 19:57] VITALS: BP 138/70
[2017-03-12] MEDS ORDERED: CLINDAMYCIN 900 MG/6 ML VIAL IV ONE (20:16)
[2017-03-12] MEDS: cloNIDine 0.1 MG TAB PO SCH (20:42)
[2017-03-12] MEDS: METOPROLOL 25 MG TAB PO SCH (20:42)
[2017-03-12] MEDS: CARVEDILOL 3.125 MG TAB PO SCH (20:43)
[2017-03-12] MEDS: FUROSEMIDE 40 MG TAB PO SCH (20:43)
--- NOTE | 2017-03-12 20:49 | NUR ---
PATIENT C/O CHEST PAIN, ADMINISTERED NITRO STAT SL X1 PATIENT STATED HE WAS OKAY AFTER THE ONE TABLET. OTHER PM MEDS ADMINISTERED. PATIENT TOLERATED WELL, PATIENT RESTING IN BED, CALL LIGHT WITHIN REACH. WILL CONTINUE TO MONITOR.
[2017-03-12] MEDS: CLINDAMYCIN 900 MG in DEXTROSE 5% 100 ML IV SCH (21:30)
--- NOTE | 2017-03-12 22:19 | NUR ---
PATIENT MOANING C/O CHEST PAIN 09/05 ADMINISTERED NITRO STAT SL X2, PATIENT RESTING IN BED, VITAL SIGNS BP 164/97 HR 108, WILL CONTINUE TO MONITOR.
[2017-03-13] VITALS: BP 149/80
--- NOTE | 2017-03-13 00:10 | NUR ---
PATIENT SLEEPING, EASILY AWOKEN, VITAL SIGNS STABLE, NO SOB OR SIGN OF DISTRESS AT THIS TIME, CALL LIGHT WITHIN REACH. WILL CONTINUE TO MONITOR.
[2017-03-13] MEDS: NITROGLYCERIN 0.4 MG TAB SL PRN ×5 (01:52→13:53)
--- NOTE | 2017-03-13 01:59 | NUR ---
PT C/O CHEST PAIN ADMINISTERED NITRO STAT SL X 2 TABLETS. PATIENT LAID DOWN TO GO BACK TO SLEEP STATED HE DID NOT NEED A THIRD PILL. WILL CONTINUE TO MONITOR.
--- NOTE | 2017-03-13 02:16 | NUR ---
PATIENT REFUSED BLOOD DRAW, CHARGE NURSE DEDRA AWARE. LAB WILL TRY AGAIN LATER THIS MORNING.
[2017-03-13 04:00] VITALS: BP 152/70
--- NOTE | 2017-03-13 04:05 | NUR ---
VITAL SIGNS STABLE, NO SOB OR SIGN OF DISTRESS AT THIS TIME, CALL LIGHT WITHIN REACH. WILL CONTINUE TO MONITOR.
[2017-03-13] MEDS ORDERED: CLINDAMYCIN 900 MG/6 ML VIAL IV ONE (04:13)
[2017-03-13] MEDS: CLINDAMYCIN 900 MG in DEXTROSE 5% 100 ML IV SCH ×3 (04:25→20:20)
--- NOTE | 2017-03-13 05:45 | NUR ---
PATIENT REFUSED BLOOD DRAW AGAIN FOR THIRD TIME. CHARGE NURSE AWARE.
--- NOTE | 2017-03-13 07:30 | NUR ---
ENDORSED PATIENT TO DAY RN AT BEDSIDE, PATIENT IN STABLE CONDITION
--- NOTE | 2017-03-13 07:31 | NUR ---
RECEIVED REPORT FROM MODESTO CARRION. PT IS AAOX4. PT IS ON ROOM AIR. IV TO LEFT AC #20 PATENT AND INTACT. CASH CATHETER NOTED TO RIGHT UPPER CHEST, THRILL AND BRUIT PRESENT. SKIN IS INTACT. SAFETY PRECAUTIONS IN PLACE WITH BED IN LOWEST POSITION AND SIDE RAILS UP. CALL LIGHT WITHIN REACH. WILL CONTINUE TO MONITOR.
--- NOTE | 2017-03-13 07:56 | NUR ---
PATIENT HAS BEEN SCREENED AND CATEGORIZED MODERATE NUTRITION RISK. PATIENT WILL BE SEEN WITHIN 3-5 DAYS OF ADMISSION. 03/15/17-03/17/[address]
[2017-03-13 08:00] VITALS: BP 157/85
[2017-03-13] MEDS: LISINOPRIL 5 MG TAB PO SCH (08:29)
[2017-03-13] MEDS: PANTOPRAZOLE 40 MG TABEC PO SCH (08:29)
[2017-03-13] MEDS: METOPROLOL 25 MG TAB PO SCH (08:29)
[2017-03-13] MEDS: FUROSEMIDE 40 MG TAB PO SCH ×2 (08:30→20:22)
[2017-03-13] MEDS: ECOTRIN 81 MG TABEC PO SCH (08:30)
[2017-03-13] MEDS: NIFEdipine 30 MG TABER PO SCH (08:30)
[2017-03-13] MEDS: ATORVASTATIN 20 MG TAB PO SCH (08:30)
[2017-03-13] MEDS: cloNIDine 0.1 MG TAB PO SCH ×2 (08:31→20:21)
[2017-03-13] MEDS: CARVEDILOL 3.125 MG TAB PO SCH (08:31)
--- NOTE | 2017-03-13 08:41 | NUR ---
CHECKED BP: 157/85, HR: 90. PT C/O CHEST PAIN, SHARP AND CONTINUOUS. 9/10. ADMINISTERED NITROGLYCERIN ORDERED. PT TOLERATED WELL. WILL REASSESS.
--- NOTE | 2017-03-13 09:22 | NUR ---
DR. GARCÍA IN TO SEE PT. WILL FOLLOW UP ON ORDERS.
--- NOTE | 2017-03-13 10:00 | NUR ---
24 HR URINE PROTEIN COLLECTED STARTED. PROVIDED EDUCATION, PT AWARE. WILL CONTINUE TO MONITOR.
[2017-03-13 12:00] VITALS: BP 133/70
--- NOTE | 2017-03-13 13:29 | NUR ---
PT TOLERATED MEDS WELL.
--- NOTE | 2017-03-13 14:03 | NUR ---
FAXED INITIAL REVIEW TO [phone] SIM JASON [phone] APRIL [phone]
--- NOTE | 2017-03-13 14:57 | NUR ---
CHECKED ON PT. RESTING AT THIS TIME, AROUSABLE. CALL LIGHT WITHIN REACH.
[2017-03-13 16:00] VITALS: BP 138/70
[2017-03-13] MEDS: NICOTINE TRANSD SYS 14 MG/24 HR PATCH TD SCH (17:15)
--- NOTE | 2017-03-13 17:16 | NUR ---
PT TOLERATED MEDS WELL.
--- NOTE | 2017-03-13 17:25 | NUR ---
DR. KELLER IN TO SEE PT. WILL FOLLOW UP ON ORDERS.
--- NOTE | 2017-03-13 18:03 | NUR ---
PT SIGNED CONSENT FOR CT CHEST WITH CONTRAST. PLACE IN PT'S CHART.
--- NOTE | 2017-03-13 18:45 | NUR ---
PER DR. GARCÍA, BLADDER SCAN PERFORMED. 137 ML NOTED.
--- NOTE | 2017-03-13 19:30 | NUR ---
RECEIVED REPORT FROM INGE SALVADOR AT BEDSIDE. PT IS ALERT AWAKE ORIENTED X4. INITIAL ASSESSMENT DONE. NO S/S OF RESPIRATORY DISTRESS OR SOB NOTED. NO C/O PAIN OR ANY DISCOMFORT AT THIS TIME. PLAN OF CARE REVIEWED TO PT AND VERBALIZED UNDERSTANDING. CALL LIGHT WITHIN REACH. WILL CONTINUE TO MONITOR.
--- NOTE | 2017-03-13 19:34 | NUR ---
ENDORSED CARE TO MODESTO COLLADO. PT IN STABLE CONDITION.
[2017-03-13 20:00] VITALS: BP 145/72
[2017-03-13] MEDS: CARVEDILOL 12.5 MG TAB PO SCH (20:21)
[2017-03-13] MEDS: TACROLIMUS 1 MG CAP PO SCH (20:22)
[2017-03-13] MEDS ORDERED: SIMVASTATIN 20 MG TAB PO SCH ×2 (21:00)
[2017-03-13] MEDS: MORPHINE SULFATE 4 MG/ML SYR IVP PRN (22:24)
--- NOTE | 2017-03-13 22:30 | NUR ---
CALLED DIALYSIS NURSE KATIA KING AND CONFIRMED DIALYSIS SCHEDULE FOR TOMORROW AT 0800. WILL CONTINUE TO MONITOR.
[2017-03-14] VITALS: BP 138/77
--- NOTE | 2017-03-14 00:12 | NUR ---
PT OFF THE UNIT TAKEN TO RADIOLOGY DEPT. TO HAVE CT SCAN WITH CONTRAST ON THE CHEST.
--- NOTE | 2017-03-14 00:44 | NUR ---
CAME BACK FROM CT SCAN.
--- NOTE | 2017-03-14 01:15 | NUR ---
PT IS SLEEPING RIGHT NOW BUT EASILY AROUSABLE. NO S/S OF ANY DISCOMFORT AT THIS TIME. ALL NEEDS ARE ATTENDED. CALL LIGHT WITHIN REACH. WILL CONTINUE TO MONITOR.
[2017-03-14 04:00] VITALS: BP 135/73
[2017-03-14] MEDS: CLINDAMYCIN 900 MG in DEXTROSE 5% 100 ML IV SCH ×2 (04:25→14:14)
--- NOTE | 2017-03-14 05:15 | NUR ---
AM CARE RENDERED. BED LINEN CHANGED. INSTRUCTED PT TO REPOSITION. KEPT CLEAN AND DRY. CALL LIGHT WITHIN REACH. WILL CONTINUE TO MONITOR.
--- NOTE | 2017-03-14 07:30 | NUR ---
PT HAS NO S/S OF ANY DISCOMFORT. PLAN OF CARE ENDORSE TO AM SHIFT NURSE FOR CONTINUITY OF CARE.
--- NOTE | 2017-03-14 07:30 | NUR ---
RECEIVED PT FROM HEAVEN SALVADOR. PT AWAKE, ALERT, AND ORIENTED. ON ROOM AIR, NO S/S OF RESPIRATORY DISTRESS NOTED. IV TO LEFT AC#20, SALINE LOCKED, SITE INTACT AND PATENT. CASH CATHETER NOTED TO RIGHT UPPER CHEST. BRUIT AND THRILL PRESENT. INTACT SKIN, PT CAN MOVE ALL HIS EXTREMITIES. HOB ELEVATED 30 DEGREES WITH LOW BED POSITION. CALL LIGHT IN REACH, POC DISCUSSED WITH PT. PT VERBALIZED UNDERSTANDING .WILL CONTINUE TO MONITOR.
[2017-03-14 08:00] VITALS: BP 135/70
[2017-03-14] MEDS ORDERED: REGADENOSON 0.4 MG/5 ML SYR IV SCH (08:00)
[2017-03-14] MEDS: NITROGLYCERIN 0.4 MG TAB SL PRN (08:13)
[2017-03-14] MEDS ORDERED: ISOSORBIDE MONONITRATE 30 MG TABER PO SCH (09:00)
[2017-03-14] MEDS: LISINOPRIL 5 MG TAB PO SCH (09:00)
[2017-03-14] MEDS: cloNIDine 0.1 MG TAB PO SCH (09:00)
[2017-03-14] MEDS: NIFEdipine 30 MG TABER PO SCH (09:00)
[2017-03-14] MEDS: FUROSEMIDE 40 MG TAB PO SCH (09:00)
[2017-03-14] MEDS: CARVEDILOL 12.5 MG TAB PO SCH (09:00)
[2017-03-14] MEDS: ATORVASTATIN 20 MG TAB PO SCH (09:20)
[2017-03-14] MEDS: PANTOPRAZOLE 40 MG TABEC PO SCH (09:20)
[2017-03-14] MEDS: ECOTRIN 81 MG TABEC PO SCH (09:20)
[2017-03-14] MEDS: TACROLIMUS 1 MG CAP PO SCH (10:05)
--- NOTE | 2017-03-14 11:13 | NUR ---
CM NOTE CONCURRENT REVIEW SENT TO [facility] FAX# [phone] PH# [place] [phone]
--- NOTE | 2017-03-14 11:17 | NUR ---
PT AWAKE, ALERT, AND ORIENTED. NO S/S OF RESPIRATORY DISTRESS NOTED. LEFT UNIT FOR LEXISCAN STRESS TEST ACCOMPANIED BY TECH VIA WHEELCHAIR.
[2017-03-14] MEDS: MORPHINE SULFATE 4 MG/ML SYR IVP PRN (12:06)
--- NOTE | 2017-03-14 13:30 | NUR ---
LEXISCAN STRESS TEST DONE
--- NOTE | 2017-03-14 13:55 | NUR ---
PT BACK TO UNIT
[2017-03-14 14:02] VITALS: BP 138/65
--- NOTE | 2017-03-14 14:02 | NUR ---
PT AWAKE, ALERT, AND ORIENTED. NO S/S OF RESPIRATORY DISTRESS NOTED. HR 87. BP 138/65.
--- NOTE | 2017-03-14 14:10 | NUR ---
PT REFUSED DIALYSIS TODAY, PT STATING" I HAD TOO MUCH TEST TODAY, I WILL RESCHEDULE DIALYSIS".
[2017-03-14] MEDS ORDERED: FUROSEMIDE 40 MG TAB PO SCH (14:11)
[2017-03-14] MEDS ORDERED: ISOSORBIDE MONO30 MG PO (14:23)
[2017-03-14] MEDS ORDERED: LISINOPRIL10 M1 PO (14:23)
[2017-03-14] MEDS ORDERED: NITROSTAT0.4 MG SL (14:23)
[2017-03-14] MEDS ORDERED: CARVEDILOL12.5 MG PO (14:23)
[2017-03-14] MEDS ORDERED: CLINDAMYCIN300 M1 PO (14:28)
[2017-03-14 16:00] VITALS: BP 140/70
--- NOTE | 2017-03-14 17:00 | NUR ---
PAGED REGARDING RESULT OF LEXISCAN AND HE DISCUSSED TO THE PATIENT THE RESULT.
--- NOTE | 2017-03-14 17:31 | NUR ---
DR. KELLER CALLED AND HE SAID PATIENT CAN BE D/C HOME, PATIENT REFUSING THE ANGIOGRAM IN SPITE OF EXPLAINING THE RISK AND CONSEQUENCES. HE WILL FOLLOW UP IN HIS OFFICE ON MONDAY AT 0900 AM AND WILL BRING THE COPY OF LEXISCAN.
[2017-03-14] MEDS: NICOTINE TRANSD SYS 14 MG/24 HR PATCH TD SCH (18:00)
--- NOTE | 2017-03-14 18:05 | NUR ---
PT AWAKE, ALERT, AND ORIENTED, NO S/S OF RESPIRATORY DISTRESS NOTED. DISCHARGE INSTRUCTION GIVEN AND PRESCRIPTION GIVEN. PT VERBALIZED UNDERSTANDING. PT STATED HE WILL GO PHARMACY TODAY TO GET PRESCRIPTION AND MAKE APPOINTMENT FOR DIALYSIS TOMORROW. PT IN STABLE CONDITION, LEFT UNIT VIA WHEELCHAIR.
[2017-03-15] MEDS ORDERED: LISINOPRIL 10 MG TAB PO SCH (09:00)
== END 2017-03-14 18:15 | disposition home or self-care (01) | DRG 143 ==
LOC: MED 09:27 → MTU 12:10
PROVIDERS: ADMIT Internal Medicine Pulmonary Disease; ATTEND Internal Medicine Pulmonary Disease
PROC: 5A1D00Z (ICD-10-PCS; principal; 2017-03-14)
DX: M95.4 Acquired deformity of chest and rib (principal); N17.0 Acute kidney failure with tubular necrosis; I12.0 Hypertensive chronic kidney disease with stage 5 chronic kidney disease or end stage renal disease; N18.6 End stage renal disease; T82.7XXA Infection and inflammatory reaction due to other cardiac and vascular devices, implants and grafts, initial encounter; L03.313 Cellulitis of chest wall; N04.2 Nephrotic syndrome with diffuse membranous glomerulonephritis; D63.1 Anemia in chronic kidney disease; Y83.8 Other surgical procedures as the cause of abnormal reaction of the patient, or of later complication, without mention of misadventure at the time of the procedure; J90 Pleural effusion, not elsewhere classified; R60.1 Generalized edema; F17.210 Nicotine dependence, cigarettes, uncomplicated; E66.9 Obesity, unspecified; Z99.2 Dependence on renal dialysis; Z68.35 Body mass index [BMI] 35.0-35.9, adult; Z87.81 Personal history of (healed) traumatic fracture; Y92.89 Other specified places as the place of occurrence of the external cause